=== PATIENT | male | born 1975 | race American Indian/Alaskan Native ===

== ENCOUNTER 2020-03-20 18:45 | Emergency (ER) | payer SELFPAY ==
[2020-03-20 19:40] VITALS: BP 155/83
[2020-03-20 20:51] LABS: Bilirubin,Urine NEG (Negative); Blood,Urine NEG (Negative); Color,Urine Yellow (Yellow); Mucus,Urine FEW /HPF; Protein,Urine <15 mg/dL mg/dL (Negative); Urobilinogen,Urine < 2.0 mg/dL (<2.0); WBC,Urine < 1.0 /HPF (0.0-6.0)
--- NOTE | 2020-03-20 21:47 | Emergency Department Report ---
ED Male HPI - General Chief complaint: Urogenital-Male Stated complaint: PENIS NUMBNESS Source: patient Mode of arrival: Ambulatory Limitations: No Limitations - History of Present Illness Initial comments: Patient is a 44-year-old -[place] male with no past medical history presents to the ED with complaint of acute onset persistent penile tingling and numbness for the last 2 weeks. Patient states that he initially developed a rash on the penile shaft about 2 months ago which took time to heal after being evaluated at the hospital for the same. Patient states that after the rash on his penis healed he developed tingling sensation with numbness on the penis which has been persistent. Patient however states that he still has a normal erection and sexual urge but was concerned about the tingling sensation and numbness on his penis. Patient denies testicular pain, dysuria, urinary frequency and urgency, penile rash, penile discharge, scrotal pain and swelling, hematuria, low back pain, suprapubic pain, nausea and vomiting or fever and traumatic injury. MD Complaint: other (penile numbness and tingling) -: Sudden, week(s) (2) Location: penis Radiation: none Severity: mild Severity scale (0 -10): 0 Quality: dull Consistency: intermittent Improves with: none Worsens with: none denies other symptoms. denies: discharge, swelling, mass, urinary retention, blood in urine, dysuria, fever, nausea/vomiting, incontinence, other - Related Data Sexually active: Yes Allergies Allergy/AdvReac Type Severity Reaction Status Date / Time No Known Allergies Allergy Unverified 03/20/20 19:45 ED Review of Systems ROS: Stated complaint: PENIS NUMBNESS Other details as noted in HPI Constitutional: denies: chills, fever Eyes: denies: eye pain, eye discharge, vision change ENT: denies: ear pain, throat pain Respiratory: denies: cough, shortness of breath, wheezing Cardiovascular: denies: chest pain, palpitations Endocrine: no symptoms reported Gastrointestinal: denies: abdominal pain, nausea, diarrhea Genitourinary: other (penile numbness and tingling sensation). denies: urgency, dysuria Musculoskeletal: denies: back pain, joint swelling, arthralgia Skin: denies: rash, lesions Neurological: denies: headache, weakness, paresthesias Psychiatric: denies: anxiety, depression Hematological/Lymphatic: denies: easy bleeding, easy bruising ED Past Medical Hx - Past Medical History Previous Medical History?: No - Surgical History Past Surgical History?: No - Social History Smoking Status: Current Every Day Smoker Substance Use Type: None ED Physical Exam - General Limitations: No Limitations General appearance: alert, in no apparent distress - Head Head exam: Present: atraumatic, normocephalic, normal inspection - Eye Eye exam: Present: normal appearance, PERRL, EOMI Pupils: Present: normal accommodation - ENT ENT exam: Present: normal exam, normal orophraynx, mucous membranes moist, TM's normal bilaterally, normal external ear exam - Neck Neck exam: Present: normal inspection, full ROM - Respiratory Respiratory exam: Present: normal lung sounds bilaterally. Absent: respiratory distress, wheezes, rales, rhonchi, stridor, chest wall tenderness, accessory muscle use, decreased breath sounds, prolonged expiratory - Cardiovascular Cardiovascular Exam: Present: regular rate, normal rhythm, normal heart sounds. Absent: systolic murmur, diastolic murmur, rubs, gallop - GI/Abdominal GI/Abdominal exam: Present: soft, normal bowel sounds. Absent: tenderness, guarding, rebound, hyperactive bowel sounds, hypoactive bowel sounds, organomegaly, mass - exam: Present: normal inspection External exam: Present: normal external exam, other (Male mixing pan tender Mr. Maddox present during the penile exam) - Extremities Exam Extremities exam: Present: normal inspection, full ROM, normal capillary refill - Back Exam Back exam: Present: normal inspection, full ROM. Absent: tenderness, CVA tenderness (R), CVA tenderness (L), muscle spasm, paraspinal tenderness - Neurological Exam Neurological exam: Present: alert, oriented X3, CN II-XII intact, normal gait, reflexes normal - Psychiatric Psychiatric exam: Present: normal affect, normal mood - Skin Skin exam: Present: warm, dry, intact, normal color. Absent: rash ED Course Vital Signs 03/20/20 19:37 Temperature 98.7 F Pulse Rate 69 Respiratory 18 Rate Blood Pressure 155/83 O2 Sat by Pulse 98 Oximetry ED Medical Decision Making - Medical Decision Making This is a 44-year-old -[place] male with no past medical history presents to the ED with complaint of acute onset persistent penile tingling and numbness for the last 2 weeks. Patient states that he initially developed a rash on the penile shaft about 2 months ago which took time to heal after being evaluated at the hospital for the same. Patient states that after the rash on his penis healed he developed tingling sensation with numbness on the penis which has been persistent. Patient however states that he still has a normal erection and sexual urge but was concerned about the tingling sensation and numbness on his penis. In the ED, patient is alert and oriented x3 and is not in distress. Urinalysis test result is unremarkable. Physical exam reveals no evidence of rashes, trauma or wound on the penile shaft, no penile discharge or tenderness. Patient was discharged home and given a referral to the urologist Dr. Ordaz for follow-up. Patient is advised to return to the ED immediately if symptoms get worse. - Differential Diagnosis Syphilis; folliculitis; STD; genital herpes Critical care attestation.: If time is entered above; I have spent that time in minutes in the direct care of this critically ill patient, excluding procedure time. ED Disposition Clinical Impression: Other penile anomalies, Encounter for well adult exam without abnormal findings Disposition: DC-01 TO HOME OR SELFCARE Is pt being admited?: No Does the pt Need Aspirin: No Condition: Stable Instructions: Health Maintenance, Male Additional Instructions: Follow-up with the urologist Dr. Orlin Valladares as advised, return to the ED immediately if symptoms get worse. Referrals: ORLIN VALLADARES MD [Staff Physician] - 3-5 Days Time of Disposition: 21:50 Print Language: SYRIAC
== END 2020-03-20 22:22 | disposition home or self-care (01) ==
LOC: ED 18:45
DX: Q55.69 Other congenital malformation of penis (principal); F17.200 Nicotine dependence, unspecified, uncomplicated; Z00.00 Encounter for general adult medical examination without abnormal findings
CPT/HCPCS: 81001; 99283

== ENCOUNTER 2020-03-23 17:34 | Emergency (ER) | payer SELFPAY ==
[2020-03-23 17:43] VITALS: BP 165/78
--- NOTE | 2020-03-23 17:48 | Emergency Department Report ---
Chief Complaint: Urogenital-Male Stated Complaint: PENILE NUMBNESS Time Seen by Provider: 03/23/20 17:47 - HPI History of Present Illness: 44-year-old -[place] male presents to the emergency room complaining of penile numbness and was seen here 4 days ago and was told to follow-up with a urologist. Patient returns back here after not following up with the urologist states that he just recently started a job and is difficult for him to make a follow-up appointment. Patient denies any testicular pain. - Exam Vital Signs: Vital Signs 03/23/20 17:37 Temperature 97.5 F L Pulse Rate 77 Respiratory 20 Rate Blood Pressure 165/78 O2 Sat by Pulse 98 Oximetry Physical Exam: Alert and oriented x3 no acute distress nontoxic in appearance No accessory muscles use Ambulating without difficulties MSE screening note: Focused history and physical exam performed. Due to findings the following was ordered: 44-year-old -[place] male presents to the emergency room complaining of penile numbness and was seen here 4 days ago and was told to follow-up with a urologist. Patient returns back here after not following up with the urologist states that he just recently started a job and is difficult for him to make a follow-up appointment. Patient denies any testicular pain. ED Disposition for MSE Clinical Impression: Other penile anomalies Disposition: MED SCREENING EXAM-LEFT Is pt being admited?: No Does the pt Need Aspirin: No Condition: Stable Additional Instructions: Discussed with patient he can follow-up with a urologist that he was referred recommended at his last visit on the . Referrals: BROCK MOYER MD [Staff Physician] - 3-5 Days
== END 2020-03-23 18:05 | disposition left against medical advice (07) ==
LOC: ED 17:34
DX: R20.0 Anesthesia of skin (principal); Z53.21 Procedure and treatment not carried out due to patient leaving prior to being seen by health care provider